=== PATIENT | male | born 1985 | race African-American/Black ===

== ENCOUNTER 2021-12-03 16:57 | Inpatient (IN) | payer OTHER ==
[~2021-12-03] VITALS: Ht 182.9 cm; Wt 113.5 kg
[2021-12-03] MEDS ORDERED: NITROGLYCERIN 50 MG/D5% WATER 250 ML IV PRN (17:30)
[2021-12-03 17:42] LABS: BASOPHILS % (AUTO) 0.2 % (0.0-2.0); EOSINOPHILS % (AUTO) 0 % (1.0-6.0); HEMOGLOBIN 7.3 g/dL (13.5-17.5); LYMPHOCYTES # (AUTO) 0.6 K/uL (1.0-4.8); LYMPHOCYTES % (AUTO) 5.9 % (22.0-44.0); MEAN CORPUSCULAR HEMOGLOBIN 30.5 pg (26.0-34.0); MEAN CORPUSCULAR HGB CONC 34.7 G/dL (31.0-37.0); MEAN CORPUSCULAR VOLUME 88 fL (80-100); MONOCYTES # (AUTO) 0.7 K/uL (0.1-1.0); MONOCYTES % (AUTO) 6.9 % (2.0-9.0); NEUTROPHILS # (AUTO) 9.4 K/uL (1.8-7.7); PLATELET COUNT (AUTO) 177 K/uL (150-450); RED BLOOD CELL COUNT(AUTO) 2.39 MIL/uL (4.50-5.90); RED CELL DISTRIBUTION WIDTH 20.8 % (11.5-14.5)
[2021-12-03 17:58] LABS: ALBUMIN 3.2 g/dL (3.4-5.0); BILIRUBIN,TOTAL 3.3 mg/dL (0.1-1.0); CALCIUM, TOTAL 8.8 mg/dL (8.8-10.5); CREATININE 7.91 mg/dL (0.60-1.30); POTASSIUM 3.9 mmol/L (3.5-5.1)
[2021-12-03] MEDS ORDERED: FUROSEMIDE 40 MG/4 ML VIAL IVP ONE (18:15)
[2021-12-03] MEDS ORDERED: ASPIRIN 81 MG CHEWABLE TABLET PO ONE ×2 (18:30→21:15)
[2021-12-03 18:41] LABS: COVID AG,FIA SOURCE NASOPHARYNGEAL
[2021-12-03] MEDS ORDERED: ACETAMINOPHEN 325 MG TABLET PO PRN ×2 (19:30→21:15)
[2021-12-03] MEDS ORDERED: ONDANSETRON HCL 4 MG/2 ML VIAL IVP PRN ×2 (19:30→21:15)
[2021-12-03] MEDS ORDERED: IPRATROPIUM BROMIDE 0.5 MG/2.5 ML NEB SOLUTION NEB PRN (21:15)
[2021-12-03] MEDS ORDERED: ZOLPIDEM TARTRATE 5 MG TABLET PO PRN (21:15)
[2021-12-03] MEDS ORDERED: HYDROCODONE/ACETAMINOPHEN 5-325 MG TABLET PO PRN (21:15)
[2021-12-03] MEDS ORDERED: MAGNESIUM HYDROXIDE SUSPENSION 30 ML UDCUP PO PRN (21:15)
[2021-12-03] MEDS ORDERED: ALBUTEROL SULFATE 2.5 MG/0.5 ML NEB SOLUTION NEB PRN (21:15)
[2021-12-03] MEDS ORDERED: BISACODYL 10 MG RECTAL RECTAL SUPPOSITORY PR PRN (21:15)
[2021-12-03] MEDS: ETHYL ALCOHOL 62% ANTISEPTIC NASAL INHALANT 0.6 ML AMPUL NASAL SCH (21:30)
[2021-12-03 22:26] LABS: CALCIUM, TOTAL 8.6 mg/dL (8.8-10.5); CREATININE 8.15 mg/dL (0.60-1.30); POTASSIUM 3.7 mmol/L (3.5-5.1)
[2021-12-03 22:58] LABS: APPEARANCE,URINE CLEAR (CLEAR); BILIRUBIN,URINE NEGATIVE (NEGATIVE); GLUCOSE, URINE (UA) NEGATIVE (NEGATIVE); KETONES,URINE NEGATIVE (NEGATIVE); LEUKOCYTE ESTERASE ,URINE NEGATIVE (NEGATIVE); NITRATE,URINE NEGATIVE (NEGATIVE); OCCULT BLOOD,URINE MODERATE (NEGATIVE); PROTEIN,URINE TRACE (NEGATIVE); UROBILINOGEN,URINE 0.2 mg/dL (<=1.0)
[2021-12-03 23:03] LABS: AMPHET/METH SCREEN,URINE NEGATIVE (NEGATIVE); BARBITURATE SCREEN, URINE NEGATIVE (NEGATIVE); BENZODIAZEPINES SCREEN,URINE NEGATIVE (NEGATIVE); CANNABINOID SCREEN,URINE POSITIVE (NEGATIVE); COCAINE SCREEN,URINE NEGATIVE (NEGATIVE); METHADONE SCREEN, URINE NEGATIVE (NEGATIVE); OPIATE SCREEN,URINE NEGATIVE (NEGATIVE); PHENCYCLIDINE SCREEN,URINE NEGATIVE (NEGATIVE)
[2021-12-03] MEDS ORDERED: LABETALOL HCL 200 MG in DEXTROSE 5%-WATER 160 ML IV PRN (23:15)
[2021-12-03] MEDS: CefTRIAXone 1 GM/DEXTROSE 50 ML IV SCH (23:19)
[2021-12-03 23:25] LABS: AMORPHOUS SEDIMENT,UR Few /LPF (None Seen); BACTERIA,URINE Few /HPF (None Seen); SQUAMOUS EPITHELIAL CELL,UR Rare /LPF (None Seen); WBC,URINE 0-2 /HPF (0-5)
[2021-12-03] MEDS: HEPARIN SODIUM,PORCINE 5,000 UNITS/ML VIAL SQ SCH (23:35)
[2021-12-04] VITALS (18 sets, daily range): BP systolic 124–202; BP diastolic 37–142
[2021-12-04 05:22] LABS: EOSINOPHILS % (AUTO) 0 % (1.0-6.0); MONOCYTES # (AUTO) 0.7 K/uL (0.1-1.0)
[2021-12-04 05:46] LABS: BASOPHILS % (AUTO) 0.2 % (0.0-2.0); LYMPHOCYTES # (AUTO) 0.7 K/uL (1.0-4.8); MEAN CORPUSCULAR HEMOGLOBIN 30.8 pg (26.0-34.0); MEAN CORPUSCULAR HGB CONC 34.8 G/dL (31.0-37.0); MEAN CORPUSCULAR VOLUME 89 fL (80-100); MONOCYTES % (AUTO) 7.5 % (2.0-9.0); NEUTROPHILS # (AUTO) 8.3 K/uL (1.8-7.7); PLATELET COUNT (AUTO) 132 K/uL (150-450); RED CELL DISTRIBUTION WIDTH 20.8 % (11.5-14.5)
[2021-12-04 05:47] LABS: ALBUMIN 2.7 g/dL (3.4-5.0); BILIRUBIN,TOTAL 2.6 mg/dL (0.1-1.0); CALCIUM, TOTAL 8.1 mg/dL (8.8-10.5); CREATININE 8.4 mg/dL (0.60-1.30); POTASSIUM 3.6 mmol/L (3.5-5.1); TOTAL PROTEIN, SERUM 6.2 g/dL (6.4-8.2)
[2021-12-04 05:56] LABS: HEMATOCRIT 17.7 % (41-53); HEMOGLOBIN 6.2 g/dL (13.5-17.5); NEUTROPHILS % (AUTO) 85.3 % (40.0-70.0)
[2021-12-04 06:05] LABS: PLATELET MORPHOLOGY COMMENT LARGE PLTS PRESENT
[2021-12-04] MEDS ORDERED: SODIUM CHLORIDE 0.9% 1,000 ML ONE (07:44)
[2021-12-04] MEDS: HEPARIN SODIUM,PORCINE 5,000 UNITS/ML VIAL SQ SCH ×2 (08:18→16:43)
[2021-12-04] MEDS: PANTOPRAZOLE SODIUM 40 MG/VIAL IVP SCH (08:18)
[2021-12-04] MEDS: ETHYL ALCOHOL 62% ANTISEPTIC NASAL INHALANT 0.6 ML AMPUL NASAL SCH ×2 (08:18→22:34)
[2021-12-04 11:08] LABS: AMPHET/METH SCREEN,URINE NEGATIVE (NEGATIVE); BARBITURATE SCREEN, URINE NEGATIVE (NEGATIVE); BENZODIAZEPINES SCREEN,URINE NEGATIVE (NEGATIVE); CANNABINOID SCREEN,URINE POSITIVE (NEGATIVE); COCAINE SCREEN,URINE NEGATIVE (NEGATIVE); METHADONE SCREEN, URINE NEGATIVE (NEGATIVE); OPIATE SCREEN,URINE NEGATIVE (NEGATIVE)
[2021-12-04 11:17] LABS: PHENCYCLIDINE SCREEN,URINE NEGATIVE (NEGATIVE)
[2021-12-04 12:43] LABS: BASOPHILS % (AUTO) 0.3 % (0.0-2.0); EOSINOPHILS % (AUTO) 0 % (1.0-6.0); HEMATOCRIT 21.4 % (41-53); HEMOGLOBIN 7.3 g/dL (13.5-17.5); LYMPHOCYTES # (AUTO) 0.6 K/uL (1.0-4.8); LYMPHOCYTES % (AUTO) 4.7 % (22.0-44.0); MEAN CORPUSCULAR HEMOGLOBIN 30.4 pg (26.0-34.0); MEAN CORPUSCULAR HGB CONC 34.1 G/dL (31.0-37.0); MEAN CORPUSCULAR VOLUME 89 fL (80-100); MONOCYTES # (AUTO) 0.9 K/uL (0.1-1.0); MONOCYTES % (AUTO) 7.5 % (2.0-9.0); NEUTROPHILS # (AUTO) 10.3 K/uL (1.8-7.7); NEUTROPHILS % (AUTO) 87.5 % (40.0-70.0); PLATELET COUNT (AUTO) 124 K/uL (150-450); RED BLOOD CELL COUNT(AUTO) 2.41 MIL/uL (4.50-5.90); RED CELL DISTRIBUTION WIDTH 18.6 % (11.5-14.5)
[2021-12-04] MEDS: AmLODIPine BESYLATE 5 MG TABLET PO SCH ×2 (12:49→21:00)
[2021-12-04] MEDS: METOPROLOL SUCCINATE 50 MG ER TABLET PO SCH (12:49)
[2021-12-04 12:55] LABS: CALCIUM, TOTAL 8.4 mg/dL (8.8-10.5); CREATININE 8.49 mg/dL (0.60-1.30); POTASSIUM 4.6 mmol/L (3.5-5.1)
[2021-12-04 13:09] LABS: PHOSPHORUS 9.9 mg/dL (2.5-4.9)
[2021-12-04] MEDS: HydrALAZINE HCL 20 MG/ML VIAL IVP PRN ×2 (13:30→17:43)
[2021-12-04] MEDS: SODIUM CHLORIDE 3% 500 ML IV SCH (14:35)
[2021-12-04] MEDS: MORPHINE SULFATE 2 MG/ML SYRINGE IVP PRN ×2 (18:25→22:34)
[2021-12-04] MEDS ORDERED: FUROSEMIDE 40 MG/4 ML VIAL IVP ONE (22:15)
[2021-12-04] MEDS: CefTRIAXone 1 GM/DEXTROSE 50 ML IV SCH (22:16)
[2021-12-05] VITALS (14 sets, daily range): BP systolic 136–170; BP diastolic 92–123
[2021-12-05] MEDS: HEPARIN SODIUM,PORCINE 5,000 UNITS/ML VIAL SQ SCH ×3 (00:18→15:28)
[2021-12-05] MEDS: HydrALAZINE HCL 20 MG/ML VIAL IVP PRN ×3 (03:55→17:23)
[2021-12-05] MEDS: SODIUM CHLORIDE 3% 500 ML IV SCH ×2 (04:06→16:48)
[2021-12-05 05:37] LABS: BASOPHILS % (AUTO) 0.1 % (0.0-2.0); EOSINOPHILS % (AUTO) 0 % (1.0-6.0); HEMATOCRIT 21.4 % (41-53); HEMOGLOBIN 7.3 g/dL (13.5-17.5); LYMPHOCYTES # (AUTO) 0.4 K/uL (1.0-4.8); LYMPHOCYTES % (AUTO) 2.3 % (22.0-44.0); MEAN CORPUSCULAR HEMOGLOBIN 29.8 pg (26.0-34.0); MEAN CORPUSCULAR HGB CONC 34.1 G/dL (31.0-37.0); MEAN CORPUSCULAR VOLUME 88 fL (80-100); MONOCYTES # (AUTO) 1.4 K/uL (0.1-1.0); MONOCYTES % (AUTO) 9.1 % (2.0-9.0); NEUTROPHILS # (AUTO) 13.8 K/uL (1.8-7.7); PLATELET COUNT (AUTO) 161 K/uL (150-450); RED BLOOD CELL COUNT(AUTO) 2.45 MIL/uL (4.50-5.90); RED CELL DISTRIBUTION WIDTH 19.1 % (11.5-14.5)
[2021-12-05 05:49] LABS: ALBUMIN 2.8 g/dL (3.4-5.0); BILIRUBIN,TOTAL 1.8 mg/dL (0.1-1.0); CALCIUM, TOTAL 8.4 mg/dL (8.8-10.5); CREATININE 8.51 mg/dL (0.60-1.30); MAGNESIUM 2.2 mg/dL (1.80-2.40); POTASSIUM 3.7 mmol/L (3.5-5.1); TOTAL PROTEIN, SERUM 6.6 g/dL (6.4-8.2)
[2021-12-05 05:59] LABS: % IRON SATURATION 6.5 % (30-44)
[2021-12-05 06:08] LABS: NEUTROPHILS % (AUTO) 88.5 % (40.0-70.0)
[2021-12-05 06:19] LABS: PLATELET MORPHOLOGY COMMENT GIANT PLTS PRESENT
[2021-12-05] MEDS: MORPHINE SULFATE 2 MG/ML SYRINGE IVP PRN (06:42)
[2021-12-05] MEDS ORDERED: BUMETANIDE 0.25 MG/ML 4 ML VIAL IVP ONE (08:15)
[2021-12-05] MEDS: PANTOPRAZOLE SODIUM 40 MG/VIAL IVP SCH (08:57)
[2021-12-05] MEDS: AmLODIPine BESYLATE 5 MG TABLET PO SCH ×2 (08:57→20:15)
[2021-12-05] MEDS: METOPROLOL SUCCINATE 50 MG ER TABLET PO SCH ×2 (08:58→20:15)
[2021-12-05 09:53] LABS: ALBUMIN 2.7 g/dL (3.4-5.0); BILIRUBIN,TOTAL 1.6 mg/dL (0.1-1.0); CALCIUM, TOTAL 8.7 mg/dL (8.8-10.5); CREATININE 8.67 mg/dL (0.60-1.30); POTASSIUM 3.9 mmol/L (3.5-5.1); TOTAL PROTEIN, SERUM 6.8 g/dL (6.4-8.2)
[2021-12-05] MEDS: ETHYL ALCOHOL 62% ANTISEPTIC NASAL INHALANT 0.6 ML AMPUL NASAL SCH ×2 (13:09→20:27)
[2021-12-05] MEDS: CloNIDine HCL 0.1 MG TABLET PO SCH ×2 (15:29→20:15)
[2021-12-05] MEDS: SOD FERRIC GLUC COMPLX/SUCROSE 125 MG in SODIUM CHLORIDE 0.9% 100 ML IV SCH (16:47)
[2021-12-05] MEDS: CefTRIAXone 1 GM/DEXTROSE 50 ML IV SCH (20:19)
[2021-12-06 01:21] VITALS: BP 143/93
[2021-12-06] MEDS: SODIUM CHLORIDE 3% 500 ML IV SCH ×2 (05:17→13:38)
[2021-12-06 06:39] VITALS: BP 145/92
[2021-12-06 07:09] LABS: BASOPHILS % (AUTO) 0.1 % (0.0-2.0); EOSINOPHILS % (AUTO) 0 % (1.0-6.0); LYMPHOCYTES # (AUTO) 0.3 K/uL (1.0-4.8); LYMPHOCYTES % (AUTO) 2.4 % (22.0-44.0); MEAN CORPUSCULAR HGB CONC 33.8 G/dL (31.0-37.0); MEAN CORPUSCULAR VOLUME 89 fL (80-100); MONOCYTES # (AUTO) 1.2 K/uL (0.1-1.0); MONOCYTES % (AUTO) 10.2 % (2.0-9.0); PLATELET COUNT (AUTO) 190 K/uL (150-450); RED BLOOD CELL COUNT(AUTO) 2.25 MIL/uL (4.50-5.90)
[2021-12-06 07:19] LABS: NEUTROPHILS % (AUTO) 87.3 % (40.0-70.0)
[2021-12-06 07:19] LABS: ALBUMIN 2.6 g/dL (3.4-5.0); BILIRUBIN,TOTAL 1.1 mg/dL (0.1-1.0); CREATININE 8.59 mg/dL (0.60-1.30); POTASSIUM 3.3 mmol/L (3.5-5.1); TOTAL PROTEIN, SERUM 6.8 g/dL (6.4-8.2)
[2021-12-06 07:22] LABS: HEMOGLOBIN 6.8 g/dL (13.5-17.5)
[2021-12-06] MEDS: CloNIDine HCL 0.1 MG TABLET PO SCH (09:13)
[2021-12-06] MEDS: HEPARIN SODIUM,PORCINE 5,000 UNITS/ML VIAL SQ SCH ×3 (09:13→17:27)
[2021-12-06] MEDS: PANTOPRAZOLE SODIUM 40 MG/VIAL IVP SCH (09:13)
[2021-12-06] MEDS: METOPROLOL SUCCINATE 50 MG ER TABLET PO SCH ×2 (09:13→21:04)
[2021-12-06] MEDS: AmLODIPine BESYLATE 5 MG TABLET PO SCH ×2 (09:13→21:04)
[2021-12-06] MEDS: ETHYL ALCOHOL 62% ANTISEPTIC NASAL INHALANT 0.6 ML AMPUL NASAL SCH ×2 (09:20→21:04)
[2021-12-06] MEDS: HydrALAZINE HCL 20 MG/ML VIAL IVP PRN (13:43)
[2021-12-06 13:45] VITALS: BP 174/105
[2021-12-06 16:32] VITALS: BP 173/104
[2021-12-06] MEDS: CloNIDine HCL 0.2 MG TABLET PO SCH ×2 (17:15→21:04)
[2021-12-06] MEDS: SOD FERRIC GLUC COMPLX/SUCROSE 125 MG in SODIUM CHLORIDE 0.9% 100 ML IV SCH (17:15)
[2021-12-06 19:49] VITALS: BP 153/100
[2021-12-06] MEDS: CefTRIAXone 1 GM/DEXTROSE 50 ML IV SCH (21:04)
[2021-12-06] MEDS: DOCUSATE SODIUM 100 MG CAPSULE PO SCH (21:04)
[2021-12-06 21:29] LABS: INR 1.1 (0.9-1.1); PROTHROMBIN TIME 11.9 SEC (9.4-11.6)
[2021-12-06 23:43] VITALS: BP 148/95
[2021-12-07] VITALS (12 sets, daily range): BP systolic 147–185; BP diastolic 91–120
[2021-12-07] MEDS: HEPARIN SODIUM,PORCINE 5,000 UNITS/ML VIAL SQ SCH ×4 (08:00→23:36)
[2021-12-07] MEDS: ETHYL ALCOHOL 62% ANTISEPTIC NASAL INHALANT 0.6 ML AMPUL NASAL SCH ×2 (09:00→20:31)
[2021-12-07] MEDS: PANTOPRAZOLE SODIUM 40 MG/VIAL IVP SCH (09:00)
[2021-12-07] MEDS: HydrALAZINE HCL 25 MG TABLET PO SCH ×3 (09:15→16:00)
[2021-12-07] MEDS ORDERED: LABETALOL HCL 5 MG/ML 20 ML VIAL IVP PRN (09:15)
[2021-12-07] MEDS: METOPROLOL SUCCINATE 50 MG ER TABLET PO SCH ×2 (09:51→20:31)
[2021-12-07] MEDS: DOCUSATE SODIUM 100 MG CAPSULE PO SCH ×2 (09:51→20:31)
[2021-12-07] MEDS: CloNIDine HCL 0.2 MG TABLET PO SCH ×3 (09:52→20:31)
[2021-12-07] MEDS: AmLODIPine BESYLATE 5 MG TABLET PO SCH ×3 (09:52→21:00)
[2021-12-07] MEDS: HydrALAZINE HCL 20 MG/ML VIAL IVP PRN (09:53)
[2021-12-07] MEDS: LABETALOL HCL 5 MG/ML 20 ML VIAL IVP PRN (12:55)
[2021-12-07] MEDS: SOD FERRIC GLUC COMPLX/SUCROSE 125 MG in SODIUM CHLORIDE 0.9% 100 ML IV SCH (16:00)
[2021-12-07] MEDS: CefTRIAXone 1 GM/DEXTROSE 50 ML IV SCH (23:35)
[2021-12-08] VITALS (14 sets, daily range): BP systolic 153–185; BP diastolic 82–120
[2021-12-08 07:18] LABS: BASOPHILS % (AUTO) 0.1 % (0.0-2.0); EOSINOPHILS % (AUTO) 0 % (1.0-6.0); HEMATOCRIT 21.3 % (41-53); LYMPHOCYTES # (AUTO) 0.5 K/uL (1.0-4.8); LYMPHOCYTES % (AUTO) 4.6 % (22.0-44.0); MEAN CORPUSCULAR HEMOGLOBIN 29.9 pg (26.0-34.0); MEAN CORPUSCULAR HGB CONC 33.1 G/dL (31.0-37.0); MEAN CORPUSCULAR VOLUME 90 fL (80-100); MONOCYTES # (AUTO) 1.1 K/uL (0.1-1.0); MONOCYTES % (AUTO) 10.2 % (2.0-9.0); NEUTROPHILS % (AUTO) 85.1 % (40.0-70.0); PLATELET COUNT (AUTO) 227 K/uL (150-450); RED BLOOD CELL COUNT(AUTO) 2.36 MIL/uL (4.50-5.90); RED CELL DISTRIBUTION WIDTH 18.5 % (11.5-14.5)
[2021-12-08 07:44] LABS: ALBUMIN 2.6 g/dL (3.4-5.0); BILIRUBIN,TOTAL 0.9 mg/dL (0.1-1.0); CALCIUM, TOTAL 9.1 mg/dL (8.8-10.5); CREATININE 6.35 mg/dL (0.60-1.30); POTASSIUM 3.7 mmol/L (3.5-5.1); TOTAL PROTEIN, SERUM 6.8 g/dL (6.4-8.2)
[2021-12-08] MEDS: AmLODIPine BESYLATE 5 MG TABLET PO SCH ×2 (07:48→20:23)
[2021-12-08] MEDS: DOCUSATE SODIUM 100 MG CAPSULE PO SCH ×2 (07:48→20:22)
[2021-12-08] MEDS: HydrALAZINE HCL 25 MG TABLET PO SCH ×4 (07:48→23:59)
[2021-12-08] MEDS: CloNIDine HCL 0.2 MG TABLET PO SCH ×3 (07:48→20:22)
[2021-12-08] MEDS: METOPROLOL SUCCINATE 50 MG ER TABLET PO SCH ×2 (07:48→20:22)
[2021-12-08] MEDS: ETHYL ALCOHOL 62% ANTISEPTIC NASAL INHALANT 0.6 ML AMPUL NASAL SCH ×2 (07:49→20:23)
[2021-12-08] MEDS: PANTOPRAZOLE SODIUM 40 MG/VIAL IVP SCH (07:49)
[2021-12-08] MEDS: HEPARIN SODIUM,PORCINE 5,000 UNITS/ML VIAL SQ SCH ×3 (07:49→23:59)
[2021-12-08 09:59] LABS: MAGNESIUM 2.8 mg/dL (1.80-2.40)
[2021-12-08] MEDS: LABETALOL HCL 5 MG/ML 20 ML VIAL IVP PRN (10:47)
[2021-12-08] MEDS ORDERED: HEPARIN SODIUM,PORCINE 1,000 UNITS/ML VIAL IVP ONE ×2 (12:00→16:50)
[2021-12-08] MEDS ORDERED: MANNITOL 25%-12.5 GM/50 ML VIAL IVP PRN (15:30)
[2021-12-08] MEDS ORDERED: HEPARIN SODIUM,PORCINE 1,000 UNITS/ML VIAL IVCATH ONE (16:00)
[2021-12-08] MEDS: SOD FERRIC GLUC COMPLX/SUCROSE 125 MG in SODIUM CHLORIDE 0.9% 100 ML IV SCH (16:35)
[2021-12-08] MEDS ORDERED: ALBUMIN HUMAN 25%-12.5GM/50ML IV BOTTLE IV ONE (16:50)
[2021-12-08] MEDS: CefTRIAXone 1 GM/DEXTROSE 50 ML IV SCH (21:13)
[2021-12-09 00:04] VITALS: BP 153/107
[2021-12-09 05:56] VITALS: BP 168/107
[2021-12-09 07:29] VITALS: BP 149/101
[2021-12-09] MEDS: CloNIDine HCL 0.2 MG TABLET PO SCH (07:44)
[2021-12-09] MEDS: EPOETIN ALFA 10,000 UNITS/ML VIAL SQ SCH (07:44)
[2021-12-09] MEDS: AmLODIPine BESYLATE 5 MG TABLET PO SCH ×2 (07:44→21:24)
[2021-12-09] MEDS: HydrALAZINE HCL 25 MG TABLET PO SCH ×3 (07:44→23:37)
[2021-12-09] MEDS: PANTOPRAZOLE SODIUM 40 MG/VIAL IVP SCH (07:44)
[2021-12-09] MEDS: HEPARIN SODIUM,PORCINE 5,000 UNITS/ML VIAL SQ SCH ×3 (07:44→23:37)
[2021-12-09] MEDS: DOCUSATE SODIUM 100 MG CAPSULE PO SCH ×2 (07:44→21:24)
[2021-12-09] MEDS: METOPROLOL SUCCINATE 50 MG ER TABLET PO SCH ×2 (07:44→21:24)
[2021-12-09 07:45] LABS: BASOPHILS % (AUTO) 0.1 % (0.0-2.0); EOSINOPHILS % (AUTO) 0.2 % (1.0-6.0); LYMPHOCYTES # (AUTO) 0.4 K/uL (1.0-4.8); LYMPHOCYTES % (AUTO) 5.3 % (22.0-44.0); MEAN CORPUSCULAR HGB CONC 33.1 G/dL (31.0-37.0); MEAN CORPUSCULAR VOLUME 91 fL (80-100); MONOCYTES % (AUTO) 12.1 % (2.0-9.0); NEUTROPHILS # (AUTO) 6.9 K/uL (1.8-7.7); NEUTROPHILS % (AUTO) 82.3 % (40.0-70.0); PLATELET COUNT (AUTO) 217 K/uL (150-450); RED BLOOD CELL COUNT(AUTO) 2.32 MIL/uL (4.50-5.90); RED CELL DISTRIBUTION WIDTH 18.4 % (11.5-14.5)
[2021-12-09] MEDS: ETHYL ALCOHOL 62% ANTISEPTIC NASAL INHALANT 0.6 ML AMPUL NASAL SCH ×2 (07:48→21:24)
[2021-12-09 08:25] LABS: ALBUMIN 2.4 g/dL (3.4-5.0); BILIRUBIN,TOTAL 0.6 mg/dL (0.1-1.0); CREATININE 4.94 mg/dL (0.60-1.30); MAGNESIUM 2.6 mg/dL (1.80-2.40); PHOSPHORUS 4.8 mg/dL (2.5-4.9); TOTAL PROTEIN, SERUM 6.8 g/dL (6.4-8.2)
[2021-12-09 11:40] VITALS: BP 150/104
[2021-12-09] MEDS: SOD FERRIC GLUC COMPLX/SUCROSE 125 MG in SODIUM CHLORIDE 0.9% 100 ML IV SCH (15:40)
[2021-12-09] MEDS: VITAMIN B COMP/VIT C/FOLIC ACID CAPSULE PO SCH (15:40)
[2021-12-09] MEDS ORDERED: SODIUM CHLORIDE 0.9% 250 ML IV ONE (15:43)
[2021-12-09 19:59] VITALS: BP 146/93
[2021-12-09] MEDS: CefTRIAXone 1 GM/DEXTROSE 50 ML IV SCH (21:24)
[2021-12-10] VITALS (15 sets, daily range): BP systolic 140–158; BP diastolic 74–105
[2021-12-10] MEDS: VITAMIN B COMP/VIT C/FOLIC ACID CAPSULE PO SCH (08:21)
[2021-12-10] MEDS: AmLODIPine BESYLATE 5 MG TABLET PO SCH ×2 (08:21→21:06)
[2021-12-10] MEDS: METOPROLOL SUCCINATE 50 MG ER TABLET PO SCH (08:21)
[2021-12-10] MEDS: PANTOPRAZOLE SODIUM 40 MG/VIAL IVP SCH (08:21)
[2021-12-10] MEDS: HydrALAZINE HCL 25 MG TABLET PO SCH ×3 (08:21→23:30)
[2021-12-10] MEDS: HEPARIN SODIUM,PORCINE 5,000 UNITS/ML VIAL SQ SCH ×3 (08:21→23:30)
[2021-12-10] MEDS: ETHYL ALCOHOL 62% ANTISEPTIC NASAL INHALANT 0.6 ML AMPUL NASAL SCH ×2 (08:22→21:06)
[2021-12-10] MEDS: DOCUSATE SODIUM 100 MG CAPSULE PO SCH ×2 (08:22→21:06)
[2021-12-10 10:47] LABS: BASOPHILS % (AUTO) 0.4 % (0.0-2.0); EOSINOPHILS % (AUTO) 1.5 % (1.0-6.0); LYMPHOCYTES # (AUTO) 0.8 K/uL (1.0-4.8); LYMPHOCYTES % (AUTO) 12.5 % (22.0-44.0); MEAN CORPUSCULAR HEMOGLOBIN 29.4 pg (26.0-34.0); MEAN CORPUSCULAR HGB CONC 32.4 G/dL (31.0-37.0); MEAN CORPUSCULAR VOLUME 91 fL (80-100); MONOCYTES # (AUTO) 0.8 K/uL (0.1-1.0); MONOCYTES % (AUTO) 12.5 % (2.0-9.0); NEUTROPHILS # (AUTO) 4.5 K/uL (1.8-7.7); NEUTROPHILS % (AUTO) 73.1 % (40.0-70.0); PLATELET COUNT (AUTO) 239 K/uL (150-450); RED BLOOD CELL COUNT(AUTO) 2.29 MIL/uL (4.50-5.90); RED CELL DISTRIBUTION WIDTH 17.8 % (11.5-14.5)
[2021-12-10 11:14] LABS: BILIRUBIN,TOTAL 0.4 mg/dL (0.1-1.0); CALCIUM, TOTAL 8.8 mg/dL (8.8-10.5); CREATININE 5.98 mg/dL (0.60-1.30); HEMOGLOBIN 6.7 g/dL (13.5-17.5); MAGNESIUM 2.8 mg/dL (1.80-2.40); PHOSPHORUS 4.8 mg/dL (2.5-4.9); POTASSIUM 3.6 mmol/L (3.5-5.1)
[2021-12-10 11:15] LABS: ALBUMIN 2.3 g/dL (3.4-5.0); HEMATOCRIT 20.8 % (41-53); TOTAL PROTEIN, SERUM 6.4 g/dL (6.4-8.2)
[2021-12-10] MEDS: LABETALOL HCL 200 MG TABLET PO SCH ×2 (17:14→21:06)
[2021-12-10] MEDS: SOD FERRIC GLUC COMPLX/SUCROSE 125 MG in SODIUM CHLORIDE 0.9% 100 ML IV SCH (21:05)
[2021-12-10] MEDS: CefTRIAXone 1 GM/DEXTROSE 50 ML IV SCH (22:25)
[2021-12-11 05:14] VITALS: BP 150/97
[2021-12-11] MEDS: DOCUSATE SODIUM 100 MG CAPSULE PO SCH ×3 (08:12→23:26)
[2021-12-11] MEDS: HydrALAZINE HCL 25 MG TABLET PO SCH ×4 (08:12→23:25)
[2021-12-11] MEDS: LABETALOL HCL 200 MG TABLET PO SCH ×3 (08:12→22:15)
[2021-12-11] MEDS: HEPARIN SODIUM,PORCINE 5,000 UNITS/ML VIAL SQ SCH ×2 (08:12→16:28)
[2021-12-11] MEDS: AmLODIPine BESYLATE 5 MG TABLET PO SCH ×2 (08:12→22:14)
[2021-12-11] MEDS: ETHYL ALCOHOL 62% ANTISEPTIC NASAL INHALANT 0.6 ML AMPUL NASAL SCH ×2 (08:12→22:12)
[2021-12-11] MEDS: VITAMIN B COMP/VIT C/FOLIC ACID CAPSULE PO SCH (08:12)
[2021-12-11] MEDS: PANTOPRAZOLE SODIUM 40 MG/VIAL IVP SCH (08:12)
[2021-12-11 08:29] VITALS: BP 160/107
[2021-12-11 11:28] LABS: BASOPHILS % (AUTO) 0.7 % (0.0-2.0); HEMATOCRIT 22.6 % (41-53); HEMOGLOBIN 7.5 g/dL (13.5-17.5); LYMPHOCYTES # (AUTO) 0.8 K/uL (1.0-4.8); LYMPHOCYTES % (AUTO) 13.5 % (22.0-44.0); MEAN CORPUSCULAR HEMOGLOBIN 29.5 pg (26.0-34.0); MEAN CORPUSCULAR HGB CONC 33.1 G/dL (31.0-37.0); MEAN CORPUSCULAR VOLUME 89 fL (80-100); MONOCYTES # (AUTO) 0.7 K/uL (0.1-1.0); MONOCYTES % (AUTO) 11.2 % (2.0-9.0); NEUTROPHILS # (AUTO) 4.5 K/uL (1.8-7.7); NEUTROPHILS % (AUTO) 72.6 % (40.0-70.0); PLATELET COUNT (AUTO) 252 K/uL (150-450); RED BLOOD CELL COUNT(AUTO) 2.53 MIL/uL (4.50-5.90); RED CELL DISTRIBUTION WIDTH 17.4 % (11.5-14.5)
[2021-12-11 11:54] LABS: ALBUMIN 2.2 g/dL (3.4-5.0); BILIRUBIN,TOTAL 0.6 mg/dL (0.1-1.0); CALCIUM, TOTAL 8.6 mg/dL (8.8-10.5); CREATININE 6.45 mg/dL (0.60-1.30); MAGNESIUM 2.7 mg/dL (1.80-2.40); POTASSIUM 3.7 mmol/L (3.5-5.1); TOTAL PROTEIN, SERUM 6.1 g/dL (6.4-8.2)
[2021-12-11 11:57] VITALS: BP 151/84
[2021-12-11 16:18] VITALS: BP 145/89
[2021-12-11 19:45] VITALS: BP 137/78
[2021-12-11] MEDS: CefTRIAXone 1 GM/DEXTROSE 50 ML IV SCH (22:12)
[2021-12-11] MEDS: SOD FERRIC GLUC COMPLX/SUCROSE 125 MG in SODIUM CHLORIDE 0.9% 100 ML IV SCH ×2 (22:16→23:25)
[2021-12-11 23:20] VITALS: BP 150/93
[2021-12-12] MEDS: HEPARIN SODIUM,PORCINE 5,000 UNITS/ML VIAL SQ SCH
[2021-12-12] MEDS: CefTRIAXone 1 GM/DEXTROSE 50 ML IV SCH ×2 (00:22→19:59)
[2021-12-12 04:07] VITALS: BP 148/92
[2021-12-12] MEDS: AmLODIPine BESYLATE 5 MG TABLET PO SCH ×2 (08:44→19:58)
[2021-12-12 08:45] VITALS: BP 160/109
[2021-12-12] MEDS: DOCUSATE SODIUM 100 MG CAPSULE PO SCH ×2 (08:45→19:58)
[2021-12-12] MEDS: HydrALAZINE HCL 25 MG TABLET PO SCH ×3 (08:45→23:19)
[2021-12-12] MEDS: LABETALOL HCL 200 MG TABLET PO SCH ×3 (08:47→19:59)
[2021-12-12] MEDS: VITAMIN B COMP/VIT C/FOLIC ACID CAPSULE PO SCH (08:48)
[2021-12-12] MEDS: PANTOPRAZOLE SODIUM 40 MG/VIAL IVP SCH (08:50)
[2021-12-12] MEDS: EPOETIN ALFA 10,000 UNITS/ML VIAL SQ SCH (08:51)
[2021-12-12] MEDS: ETHYL ALCOHOL 62% ANTISEPTIC NASAL INHALANT 0.6 ML AMPUL NASAL SCH ×2 (09:00→19:58)
[2021-12-12 12:10] VITALS: BP 144/108
[2021-12-12] MEDS ORDERED: FLUMAZENIL 0.1 MG/ML 5 ML VIAL IVP ONE (12:34)
[2021-12-12] MEDS ORDERED: FentaNYL CITRATE PF 100 MCG/2 ML VIAL ONE (12:34)
[2021-12-12] MEDS ORDERED: MIDAZOLAM HCL 2 MG/2 ML VIAL ONE (12:34)
[2021-12-12] MEDS ORDERED: NALOXONE HCL 0.4 MG/ML VIAL ONE (12:34)
[2021-12-12] MEDS ORDERED: LIDOCAINE 1%/EPI 1:200,000/PF 10 ML VIAL ONE ×2 (13:10)
[2021-12-12] MEDS ORDERED: LIDOCAINE/PF 1% 30 ML VIAL ONE (13:11)
[2021-12-12] MEDS ORDERED: GELATIN SPONGE,ABSORBABLE 12-7 MM TP ONE (13:46)
[2021-12-12 16:09] VITALS: BP 156/97
[2021-12-12] MEDS: BUMETANIDE 0.25 MG/ML 10 ML VIAL IVP SCH ×2 (16:26→19:58)
[2021-12-12 19:43] VITALS: BP 121/64
[2021-12-12] MEDS: SOD FERRIC GLUC COMPLX/SUCROSE 125 MG in SODIUM CHLORIDE 0.9% 100 ML IV SCH (20:51)
[2021-12-12 23:49] VITALS: BP 132/79
[2021-12-13 04:22] VITALS: BP 141/82
[2021-12-13 07:29] LABS: BASOPHILS % (AUTO) 0.8 % (0.0-2.0); EOSINOPHILS % (AUTO) 1.5 % (1.0-6.0); HEMATOCRIT 23.3 % (41-53); HEMOGLOBIN 7.6 g/dL (13.5-17.5); LYMPHOCYTES # (AUTO) 0.8 K/uL (1.0-4.8); LYMPHOCYTES % (AUTO) 15.5 % (22.0-44.0); MEAN CORPUSCULAR HEMOGLOBIN 29.3 pg (26.0-34.0); MEAN CORPUSCULAR HGB CONC 32.8 G/dL (31.0-37.0); MEAN CORPUSCULAR VOLUME 89 fL (80-100); MONOCYTES # (AUTO) 0.7 K/uL (0.1-1.0); MONOCYTES % (AUTO) 12.2 % (2.0-9.0); NEUTROPHILS # (AUTO) 3.8 K/uL (1.8-7.7); PLATELET COUNT (AUTO) 274 K/uL (150-450); RED BLOOD CELL COUNT(AUTO) 2.61 MIL/uL (4.50-5.90); RED CELL DISTRIBUTION WIDTH 17.4 % (11.5-14.5)
[2021-12-13 07:42] LABS: CALCIUM, TOTAL 8.9 mg/dL (8.8-10.5); CREATININE 6.97 mg/dL (0.60-1.30); MAGNESIUM 2.7 mg/dL (1.80-2.40); PHOSPHORUS 5.8 mg/dL (2.5-4.9); POTASSIUM 3.8 mmol/L (3.5-5.1)
[2021-12-13 08:28] VITALS: BP 150/101
[2021-12-13] MEDS: LABETALOL HCL 200 MG TABLET PO SCH ×3 (08:33→21:00)
[2021-12-13] MEDS: BUMETANIDE 0.25 MG/ML 10 ML VIAL IVP SCH ×2 (08:33→21:00)
[2021-12-13] MEDS: AmLODIPine BESYLATE 5 MG TABLET PO SCH ×2 (08:34→21:00)
[2021-12-13] MEDS: ETHYL ALCOHOL 62% ANTISEPTIC NASAL INHALANT 0.6 ML AMPUL NASAL SCH ×2 (08:34→21:00)
[2021-12-13] MEDS: HydrALAZINE HCL 25 MG TABLET PO SCH ×3 (08:34→23:18)
[2021-12-13] MEDS: VITAMIN B COMP/VIT C/FOLIC ACID CAPSULE PO SCH (08:34)
[2021-12-13] MEDS: DOCUSATE SODIUM 100 MG CAPSULE PO SCH ×2 (08:34→21:00)
[2021-12-13] MEDS: PANTOPRAZOLE SODIUM 40 MG/VIAL IVP SCH (08:34)
[2021-12-13 11:46] VITALS: BP 123/81
[2021-12-13] MEDS ORDERED: LACTULOSE 20 GM/30 ML SOLUTION UDCUP PO ONE ×2 (13:15→17:30)
[2021-12-13 16:13] VITALS: BP 143/87
[2021-12-13] MEDS ORDERED: MINERAL OIL 133 ML ENEMA PR ONE (17:45)
[2021-12-13] MEDS: CefTRIAXone 1 GM/DEXTROSE 50 ML IV SCH (22:00)
[2021-12-13 23:14] VITALS: BP 143/83
[2021-12-14] VITALS (13 sets, daily range): BP systolic 131–162; BP diastolic 73–101
[2021-12-14 00:04] LABS: APPEARANCE,URINE CLEAR (CLEAR); BILIRUBIN,URINE NEGATIVE (NEGATIVE); GLUCOSE, URINE (UA) NEGATIVE (NEGATIVE); KETONES,URINE NEGATIVE (NEGATIVE); LEUKOCYTE ESTERASE ,URINE NEGATIVE (NEGATIVE); NITRATE,URINE NEGATIVE (NEGATIVE); OCCULT BLOOD,URINE NEGATIVE (NEGATIVE); PROTEIN,URINE TRACE (NEGATIVE); UROBILINOGEN,URINE 0.2 mg/dL (<=1.0)
[2021-12-14] MEDS: LABETALOL HCL 200 MG TABLET PO SCH ×3 (08:27→22:00)
[2021-12-14] MEDS: HydrALAZINE HCL 25 MG TABLET PO SCH ×2 (08:27→16:00)
[2021-12-14] MEDS: PANTOPRAZOLE SODIUM 40 MG/VIAL IVP SCH (08:27)
[2021-12-14] MEDS: VITAMIN B COMP/VIT C/FOLIC ACID CAPSULE PO SCH (08:27)
[2021-12-14] MEDS: AmLODIPine BESYLATE 5 MG TABLET PO SCH ×2 (08:27→22:00)
[2021-12-14] MEDS: BUMETANIDE 0.25 MG/ML 10 ML VIAL IVP SCH ×3 (08:28→22:01)
[2021-12-14] MEDS: DOCUSATE SODIUM 100 MG CAPSULE PO SCH ×3 (09:00→22:00)
[2021-12-14] MEDS: ETHYL ALCOHOL 62% ANTISEPTIC NASAL INHALANT 0.6 ML AMPUL NASAL SCH ×2 (09:47→22:07)
[2021-12-14] MEDS: POLYETHYLENE GLYCOL 3350 17 GM PACKET PO SCH (13:35)
[2021-12-14] MEDS: EPOETIN ALFA 10,000 UNITS/ML VIAL SQ SCH (18:00)
[2021-12-14] MEDS ORDERED: SODIUM CHLORIDE 0.9% 1,000 ML ONE (18:09)
[2021-12-14] MEDS: CefTRIAXone 1 GM/DEXTROSE 50 ML IV SCH (22:00)
[2021-12-15] VITALS (7 sets, daily range): BP systolic 127–158; BP diastolic 79–101
[2021-12-15] MEDS: LABETALOL HCL 200 MG TABLET PO SCH ×3 (08:32→20:22)
[2021-12-15] MEDS: VITAMIN B COMP/VIT C/FOLIC ACID CAPSULE PO SCH (08:32)
[2021-12-15] MEDS: AmLODIPine BESYLATE 5 MG TABLET PO SCH ×2 (08:32→20:22)
[2021-12-15] MEDS: HydrALAZINE HCL 25 MG TABLET PO SCH ×4 (08:32→23:43)
[2021-12-15] MEDS: POLYETHYLENE GLYCOL 3350 17 GM PACKET PO SCH (08:32)
[2021-12-15] MEDS: BUMETANIDE 0.25 MG/ML 10 ML VIAL IVP SCH ×2 (08:42→20:24)
[2021-12-15] MEDS: PANTOPRAZOLE SODIUM 40 MG/VIAL IVP SCH (08:43)
[2021-12-15] MEDS: ETHYL ALCOHOL 62% ANTISEPTIC NASAL INHALANT 0.6 ML AMPUL NASAL SCH ×2 (08:44→20:25)
[2021-12-15] MEDS: DOCUSATE SODIUM 100 MG CAPSULE PO SCH ×2 (08:44→20:35)
[2021-12-15] MEDS: OXYMETAZOLINE HCL 0.05% 15 ML NASAL SPRAY NASAL SCH ×2 (13:23→20:35)
[2021-12-15] MEDS ORDERED: HEPARIN SODIUM,PORCINE 1,000 UNITS/ML VIAL IVP ONE (17:14)
[2021-12-15] MEDS: CefTRIAXone 1 GM/DEXTROSE 50 ML IV SCH (20:35)
[2021-12-16] VITALS (14 sets, daily range): BP systolic 130–172; BP diastolic 80–110
[2021-12-16] MEDS: HydrALAZINE HCL 20 MG/ML VIAL IVP PRN ×2 (04:33→17:53)
[2021-12-16] MEDS: HydrALAZINE HCL 25 MG TABLET PO SCH ×3 (08:23→23:33)
[2021-12-16] MEDS: VITAMIN B COMP/VIT C/FOLIC ACID CAPSULE PO SCH (08:24)
[2021-12-16] MEDS: AmLODIPine BESYLATE 5 MG TABLET PO SCH ×2 (08:25→20:46)
[2021-12-16] MEDS: LABETALOL HCL 200 MG TABLET PO SCH ×3 (08:25→20:45)
[2021-12-16] MEDS: DOCUSATE SODIUM 100 MG CAPSULE PO SCH ×3 (08:26→20:59)
[2021-12-16] MEDS: POLYETHYLENE GLYCOL 3350 17 GM PACKET PO SCH (08:26)
[2021-12-16] MEDS: BUMETANIDE 0.25 MG/ML 10 ML VIAL IVP SCH ×2 (08:27→20:44)
[2021-12-16] MEDS: PANTOPRAZOLE SODIUM 40 MG/VIAL IVP SCH (08:28)
[2021-12-16] MEDS: ETHYL ALCOHOL 62% ANTISEPTIC NASAL INHALANT 0.6 ML AMPUL NASAL SCH ×2 (08:29→20:44)
[2021-12-16] MEDS: EPOETIN ALFA 10,000 UNITS/ML VIAL SQ SCH (08:33)
[2021-12-16] MEDS: OXYMETAZOLINE HCL 0.05% 15 ML NASAL SPRAY NASAL SCH ×2 (08:35→20:44)
[2021-12-16 14:46] LABS: COVID AG,FIA SOURCE NASAL SWAB
[2021-12-16] MEDS: CefTRIAXone 1 GM/DEXTROSE 50 ML IV SCH (20:53)
[2021-12-17 04:00] VITALS: BP 164/98
[2021-12-17] MEDS: HydrALAZINE HCL 20 MG/ML VIAL IVP PRN (04:39)
[2021-12-17 06:49] VITALS: BP 172/99
[2021-12-17] MEDS: LABETALOL HCL 5 MG/ML 20 ML VIAL IVP PRN (06:56)
[2021-12-17 07:19] VITALS: BP 177/106
[2021-12-17] MEDS: HydrALAZINE HCL 25 MG TABLET PO SCH (08:16)
[2021-12-17] MEDS: VITAMIN B COMP/VIT C/FOLIC ACID CAPSULE PO SCH (08:16)
[2021-12-17] MEDS: AmLODIPine BESYLATE 5 MG TABLET PO SCH (08:16)
[2021-12-17] MEDS: LABETALOL HCL 200 MG TABLET PO SCH (08:16)
[2021-12-17] MEDS: POLYETHYLENE GLYCOL 3350 17 GM PACKET PO SCH (08:17)
[2021-12-17] MEDS: OXYMETAZOLINE HCL 0.05% 15 ML NASAL SPRAY NASAL SCH (08:18)
[2021-12-17] MEDS: BUMETANIDE 0.25 MG/ML 10 ML VIAL IVP SCH (08:22)
[2021-12-17] MEDS: PANTOPRAZOLE SODIUM 40 MG/VIAL IVP SCH (08:23)
[2021-12-17] MEDS: ETHYL ALCOHOL 62% ANTISEPTIC NASAL INHALANT 0.6 ML AMPUL NASAL SCH (08:26)
[2021-12-17] MEDS: DOCUSATE SODIUM 100 MG CAPSULE PO SCH (08:27)
[2021-12-17 11:09] VITALS: BP 141/78
[2021-12-17] MEDS ORDERED: [UNRECOGNIZED DRUG - CODE] NASAL (12:24)
[2021-12-17] MEDS ORDERED: AMLO-257 PO (12:24)
[2021-12-17] MEDS ORDERED: SENN8.6T20 PO (12:24)
[2021-12-17] MEDS ORDERED: LABE200T56 PO (12:24)
[2021-12-17] MEDS ORDERED: B CO1CAP6 PO (12:24)
[2021-12-17] MEDS ORDERED: HYDR25TA84 PO (12:24)
[2021-12-17] MEDS ORDERED: CLON0.3T PO (12:24)
[2021-12-17] MEDS ORDERED: POLY17PO47 PO (12:24)
== END 2021-12-17 13:40 | disposition left against medical advice (07) | DRG 194 ==
LOC: EMS 16:58 → ICU 19:04 → 5S 12-05 19:15
PROVIDERS: ADMIT Hospitalist; ATTEND Hospitalist
PROC: 30233N1 Transfusion of Nonautologous Red Blood Cells into Peripheral Vein, Percutaneous Approach (ICD-10-PCS; 2021-12-04)
PROC: 5A09357 Assistance with Respiratory Ventilation, Less than 24 Consecutive Hours, Continuous Positive Airway Pressure (ICD-10-PCS; 2021-12-04)
PROC: 5A1D70Z Performance of Urinary Filtration, Intermittent, Less than 6 Hours Per Day (ICD-10-PCS; 2021-12-07)
PROC: 5A1D70Z Performance of Urinary Filtration, Intermittent, Less than 6 Hours Per Day (ICD-10-PCS; 2021-12-08)
PROC: 0TB13ZX Excision of Left Kidney, Percutaneous Approach, Diagnostic (ICD-10-PCS; principal; 2021-12-12)
PROC: 5A1D70Z Performance of Urinary Filtration, Intermittent, Less than 6 Hours Per Day (ICD-10-PCS; 2021-12-13)
PROC: 5A1D70Z Performance of Urinary Filtration, Intermittent, Less than 6 Hours Per Day (ICD-10-PCS; 2021-12-16)
DX: I11.0 Hypertensive heart disease with heart failure (principal); N17.9 Acute kidney failure, unspecified; J18.9 Pneumonia, unspecified organism; M62.82 Rhabdomyolysis; E87.1 Hypo-osmolality and hyponatremia; I50.31 Acute diastolic (congestive) heart failure; R04.2 Hemoptysis; E87.70 Fluid overload, unspecified; D64.9 Anemia, unspecified; K59.00 Constipation, unspecified; F12.90 Cannabis use, unspecified, uncomplicated; Z53.29 Procedure and treatment not carried out because of patient's decision for other reasons; M79.89 Other specified soft tissue disorders; J45.909 Unspecified asthma, uncomplicated; I16.0 Hypertensive urgency; Z20.822 Contact with and (suspected) exposure to COVID-19; G47.9 Sleep disorder, unspecified; Z91.19 Patient's noncompliance with other medical treatment and regimen; Z99.2 Dependence on renal dialysis; Z91.15 Patient's noncompliance with renal dialysis
CPT/HCPCS: 50200; 71045; 76770; 76942; 80048; 80053; 80307; 81001; 81003; 82550; 83540; 83550; 83735; 83880; 84100; 84295; 84484; 85025; 85610; 85730; 86038; 86160; 86256; 86704; 86850; 86900; 86901; 86923; 87081; 87340; 88300; 90935; 93005; 93306; 99291; C9113; G0378; J0360; J0696; J0885; J1644; J1940; J2250; J2270; J2310; J2405; J2916; J3010; J3490; J7030; J7050; J7060; P9016; P9047; 36415-L1; 36415-TC

== ENCOUNTER 2022-10-09 11:49 | Emergency (ER) | payer OTHER ==
[~2022-10-09] VITALS: Ht 188 cm; Wt 113.6 kg
[~2022-10-09 11:49] MED LIST: AMLO-257 PO; B CO1CAP6 PO; CLON0.3T PO; HYDR25TA84 PO; LABE200T56 PO; POLY17PO47 PO; SENN8.6T20 PO; [UNRECOGNIZED DRUG - CODE] NASAL
[2022-10-09 11:54] VITALS: BP 183/134
== END 2022-10-09 12:33 | disposition left against medical advice (07) ==
LOC: EMS 11:49
DX: T85.838A Hemorrhage due to other internal prosthetic devices, implants and grafts, initial encounter (principal); Z53.21 Procedure and treatment not carried out due to patient leaving prior to being seen by health care provider